=== PATIENT | female | born 1975 | race African-American/Black ===

== ENCOUNTER 2024-08-05 12:09 | Outpatient (CLI) | payer OTHER | END 2024-08-05 12:10 | disposition home or self-care (01) | LOC: CSHMAMMO 12:09 | PROVIDERS: ATTEND Family Medicine | DX: Z12.31 Encounter for screening mammogram for malignant neoplasm of breast (principal) | CPT/HCPCS: 77063; 77067 ==

== ENCOUNTER 2025-09-02 13:51 | Outpatient (CLI) | payer OTHER | END 2025-09-02 13:52 | disposition home or self-care (01) | LOC: CSHMAMMO 13:51 | PROVIDERS: ATTEND Family Medicine | DX: Z12.31 Encounter for screening mammogram for malignant neoplasm of breast (principal) | CPT/HCPCS: 77063; 77067 ==